=== PATIENT | female | born 1950 ===

== ENCOUNTER 2023-08-04 05:30 | Day surgery (SDC) | payer OTHER ==
[~2023-08-04 05:30] MED LIST: ADULT LOW DOSE81 M1; ATACAN; INDERAL LA120 MG; PROTONIX; [UNRECOGNIZED DRUG - OTHER]
[2023-08-04] MEDS ORDERED: CEFOXITIN SODIUM 2,000 MG VIAL IV ONE (07:40)
[2023-08-04] MEDS ORDERED: TRAM1TAB98 PO (08:58)
[2023-08-04] MEDS ORDERED: ZOFRAN8 MG PO (08:58)
[2023-08-04] MEDS ORDERED: PEPCID AC20 MG PO (08:58)
== END 2023-08-04 11:35 | disposition home or self-care (01) ==
LOC: CIR.AMB 05:30
PROVIDERS: ATTEND Surgery
DX: K80.10 Calculus of gallbladder with chronic cholecystitis without obstruction (principal); K80.01 Calculus of gallbladder with acute cholecystitis with obstruction; K85.10 Biliary acute pancreatitis without necrosis or infection; Z88.6 Allergy status to analgesic agent; Z88.5 Allergy status to narcotic agent; I10 Essential (primary) hypertension; F41.8 Other specified anxiety disorders